=== PATIENT | female | born 1950 | race African-American/Black ===

== ENCOUNTER → 2020-09-20 | Outpatient (CLI) | payer OTHER ==
[~2020-09-20] MED LIST: AMLODIPINE BESY10 MG PO; HYDROCHLOROTHIA25 M1 PO; LIPITOR 40 MG T40 M1 PO
== END ==
LOC: LAB 12:12
PROVIDERS: ATTEND Student in an Organized Health Care Education/Training Program
DX: Z01.812 Encounter for preprocedural laboratory examination (principal); Z20.822 Contact with and (suspected) exposure to COVID-19

== ENCOUNTER → 2020-09-24 | Outpatient (CLI) | payer OTHER ==
[~2020-09-24] VITALS: Ht 170.2 cm; Wt 132.0 kg
--- NOTE | 2020-09-25 09:46 | P ---
[facility] [place] [address] PROCEDURE REPORT Name: LOYD DIAZ Room #: [facility]#: [id number] Admission: 09/24/20 Attend Phys: Todd Brown Discharge: Date of : 52 Report #: [id number] THIS REPORT FOR: cc: Zenobia Dias MD, Genelle J. MD McElhinney, Christian C. MD ~ DOC #: [id number] Todd Nguyen MD DATE OF SERVICE: 09/24/2020 PROCEDURE PERFORMED: Colonoscopy with biopsies. HISTORY OF PRESENT ILLNESS: The patient is a 70-year-old female who was seen in the office on 08/17/2020 for Hemoccult positive stool. She denies any obvious blood in her stools. No abdominal pain or GI symptoms. Last colonoscopy was in 2008 and reportedly normal. No family history of colon cancer. No history of anemia. DESCRIPTION OF PROCEDURE: The risks and benefits of the procedure were explained to the patient, those risks including but not limited to bleeding, perforation and the risk of sedation. She understood these risks and gave informed consent. Sedation was given using propofol per anesthesia. Next, a digital rectal exam was initially performed, which was normal. Next, using a standard Olympus colonoscope, the scope was placed in the patient's anus and advanced under direct vision to the cecum. The overall prep was good. The cecum and ileocecal valve were normal in appearance. The ascending and transverse colon were normal. In the descending colon, a 3 mm sessile polyp was noted. This was removed with cold forceps. In the sigmoid colon, a 5 mm sessile polyp also noted and removed with cold forceps. The rectal mucosa was normal. On retroflexion, small nonbleeding internal hemorrhoids were noted. The scope was then withdrawn and the procedure terminated. The patient tolerated the procedure well. IMPRESSION: 1. Two small colonic polyps. 2. Small internal hemorrhoids. 3. Otherwise, normal colonoscopy. RECOMMENDATIONS: 1. Await biopsy results. 2. If polyps are hyperplastic, repeat in 10 years; if adenomatous polyp, repeat in 5 years. 3. Hemoccult positive stool may be secondary to hemorrhoids. No evidence of bleeding on exam today. Thank you for allowing me to participate in her care. [address] [address] PROCEDURE REPORT Name: LOYD DIAZ Room #: [facility]#: [id number] Admission: 09/24/20 Attend Phys: Todd Brown Discharge: Date of : 52 Report #: [id number] Todd Nguyen MD CCM/KDA <ELECTRONICALLY SIGNED> By: Todd Nguyen MD 09/25/20 0946 [id number] [id number] Todd Nguyen, /kb
--- NOTE | 2020-09-28 11:07 | PATH ---
[facility] [address] [address] PATHOLOGY RPT PROCEDURE Name: AGUSTINA DIAZ Efra Room #: REG [facility] Perez.#: [id number] Admission: 09/24/20 Date of : 52 Discharge: Report #: [id number] Path Case #: [id number] [facility] Accession Number: [id number] . 01 Material submitted: . PART A: colon - DESCENDING COLON POLYP. Modifiers: descending PART B: sigmoid colon - SIGMOID COLON POLYP . 01 Clinical history: . DTS/COLONOSCOPY/BLOOD IN STOOL . 02 Diagnosis: A. Polyp, descending colon polyp, endoscopic biopsy: - Inflamed hyperplastic polyp. - Negative for dysplasia. . B. Polyp, sigmoid colon polyp, endoscopic biopsy: - Tubular adenoma. - Negative for high grade dysplasia. . (IUV:mml; 09/27/2020) QLM 09/27/2020 1647 Local . 02 Electronically signed: . Virginia Barrios MD, Pathologist NPI- [id number] . 01 Gross description: . A. Received in formalin labeled "Funmilayo, Agustina and descending colon polyp". Received are 2 ramirez-brown soft tissue fragments ranging from a 0.2-0.3 cm. Specimen is entirely submitted in cassette A1. . B. Received in formalin labeled "Love, Agustina and sigmoid colon polyp". Received are 2 ramirez-brown soft tissue fragments ranging from 0.1-0.3 cm. Specimen is entirely submitted in cassette B1.(BLJ; 09/24/2020) . J/J 09/24/2020 2109 Local . 02 Pathologist provided ICD-10: K51.90, D12.5 . 02 CPT . 534809, 888214 Specimen Comment: A courtesy copy of this report has been sent to [phone] Specimen Comment: [phone] Specimen Comment: Report sent to / [place] [address] PATHOLOGY RPT PROCEDURE Name: AGUSTINA DIAZ Room #: REG [facility] Boykin#: [id number] Admission: 09/24/20 Date of : 52 Discharge: Report #: [id number] Path Case #: [id number] Performed at: 01 [facility] Tammy Gaviria [address] [facility] [address], [place], [place] [id number] MD Jamil Johnson MD Phone: [phone] Performed at: [address] [id number] MD Virginia Barrios MD Phone: [phone]
== END | disposition home or self-care (01) ==
LOC: GI 08:14
PROVIDERS: ATTEND Specialist
DX: R19.5 Other fecal abnormalities (principal); D12.5 Benign neoplasm of sigmoid colon; K51.40 Inflammatory polyps of colon without complications; K64.8 Other hemorrhoids; I10 Essential (primary) hypertension; E78.00 Pure hypercholesterolemia, unspecified; E11.9 Type 2 diabetes mellitus without complications; Z98.890 Other specified postprocedural states; Z79.899 Other long term (current) drug therapy; Z88.8 Allergy status to other drugs, medicaments and biological substances
CPT/HCPCS: 62110; 62900